=== PATIENT | female | born 1990 | race Caucasian/White ===

== ENCOUNTER 2019-02-05 17:17 | Emergency (ER) | payer OTHER ==
[~2019-02-05] VITALS: Ht 157.5 cm; Wt 51.7 kg
== END 2019-02-05 19:08 | disposition home or self-care (01) ==
LOC: ER 17:17
DX: S61.212A Laceration without foreign body of right middle finger without damage to nail, initial encounter (principal); W25.XXXA Contact with sharp glass, initial encounter; Y93.89 Activity, other specified; Y92.89 Other specified places as the place of occurrence of the external cause; Y99.8 Other external cause status

== ENCOUNTER 2024-08-16 07:32 | Emergency (ER) | payer OTHER ==
[~2024-08-16] VITALS: Ht 157.5 cm; Wt 51.7 kg
[2024-08-16] MEDS ORDERED: PROTONIX20 MG PO (08:04)
[2024-08-16] MEDS ORDERED: 0.9 % SODIUM CHLORIDE 1,000 ML IV STA (08:37)
[2024-08-16 09:33] LABS: PH,URINE 5.5 (5.0-8.0); URINE APPEARANCE Clear; URINE BILIRRUBIN Small (NEGATIVE); URINE BLOOD Negative; URINE COLOR Dark Yellow; URINE GLUCOSE Negative (NEGATIVE); URINE LEUKOCYTE Small; URINE NITRATE Negative; URINE PROTEIN Trace (NEGATIVE)
[2024-08-16 09:36] LABS: HEMATOCRIT 43.3 % (36.0-45.00); HEMOGLOBIN 14.6 g/dL (12.0-15.00); MEAN CELL VOLUME 84.3 fL (80.00-100.00); MEAN CORPUSCULAR HEMOGLOBIN 28.5 pg (27.00-32.0); MEAN CORPUSCULAR HGB CONC 33.8 g/dl (32.0-36.0); PLATELET COUNT 199 K/uL (150-450); RED BLOOD COUNT 5.14 M/uL (4.00-6.00); RED CELL DISTRIBUTION WIDTH 13.4 % (11.5-14.5)
[2024-08-16 09:38] LABS: URINE CAST 1.98 uL (0.0-1.40); URINE EPITHELIAL CELLS 134.1 uL (0.0-38.8); URINE RBC 5.1 uL (0.0-20.8); URINE WBC 72.8 uL (0.0-23.2)
[2024-08-16 10:04] LABS: URINE KETONE 80 (NEGATIVE); URINE MUCUS HEAVY
[2024-08-16 10:27] LABS: CREATININE SERUM 0.6 mg/dL (0.55-1.02); GFR 116.6; POTASSIUM 3.66 mEq/L (3.5-5.1)
== END 2024-08-16 14:05 | disposition home or self-care (01) ==
LOC: ER 07:34
PROVIDERS: Emergency Medicine
DX: K52.9 Noninfective gastroenteritis and colitis, unspecified (principal)